=== PATIENT | female | born 1955 | race Caucasian/White ===

== ENCOUNTER → 2025-03-30 | Outpatient (CLI) | payer MEDICARE, MEDICAID, SELFPAY ==
--- NOTE | 2025-03-30 14:00 | XR_ITS ---
Examination: Bone densitometry Date and time of exam:March 30, 2025, 1405 hours INDICATIONS: Menopause age 54 Technique: Lumbar spine and hip total bone mineralization values of an calculated. Peak reference and age match control results have been displayed. Findings: Lumbar spine total bone mineralization is1.055 gm/cm2. This is 21 standard deviations above peak reference. This is 2.2 standard deviations above age-matched controls. Hip total bone mineralization is 0.954 gm/cm2 This is 0.1 standard deviations above peak reference. This is 1.6 standard deviations above age-matched controls Impression: There is normal mineralization based on lumbar spine measurements. There is normal mineralization based on hip measurements Lumbar mineralization is increased 1.8% compared with March 27, 2023 Hip mineralization is decreased 1.9% compared with March 27, 2023
== END | disposition home or self-care (01) ==
LOC: CDIM 13:39
PROVIDERS: PCP Physician Assistant; Referring Provider Physician Assistant; Visit Provider Physician Assistant
DX: M81.0 Age-related osteoporosis without current pathological fracture (principal)
CPT/HCPCS: 77080

== ENCOUNTER 2025-04-30 22:11 | Emergency (ER) | payer MEDICARE, MEDICAID, SELFPAY ==
--- NOTE | 2025-04-30 22:28 | PD.EDEXREM ---
ED Extremity Problem RME/HPI General Chief complaint: General Adult/Misc Complain Stated complaint: BILATERAL LEG CRAMPING AND SWELLING Time Seen by Provider: 04/30/25 22:32 Arrival date/time: 04/30/25 22:11 RME / HPI RME / HPI Narrative: See MDM for Dr. Hines's HPI documentation. Related Data Allergies Allergy/AdvReac Type Severity Reaction Status Date / Time No Known Allergies Allergy Verified 04/30/25 22:12 Review of Systems Review of Systems Systems Reviewed: All systems reviewed, normal except as documented Past Medical History Social History SMOKING STATUS: Never smoker Course Quality Measures none Orders Category Date Time Status Bedside COVID-19 Antigen Test NOW Care 04/30/25 22:35 Completed Bedside Influenza A&B Antigen Test NOW Care 04/30/25 22:35 Completed EKG (ED ONLY) *Do not use* NOW Care 04/30/25 22:36 Completed Saline [Insert IV] NOW Care 04/30/25 22:35 Completed Straight [In and Out Catheter] X1 Care 04/30/25 22:35 Completed EKG (ED Only) Stat Exams 04/30/25 22:36 Draft US venous doppler LE BI Stat Exams 05/01/25 00:00 Taken XR chest 1V portable Stat Exams 04/30/25 22:36 Completed BNP [B-Type Natriuretic Peptide] Stat Lab 04/30/25 23:05 Completed Beta Hydroxybutyrate Stat Lab 04/30/25 23:05 Completed Bilirubin,Direct Stat Lab 04/30/25 23:05 Completed CBC Stat Lab 04/30/25 23:05 Completed CK [Creatine Kinase] Stat Lab 04/30/25 23:05 Completed CMP [Comprehensive Metabolic Panel] Stat Lab 04/30/25 23:05 Completed CRP [C-Reactive Protein] Stat Lab 04/30/25 23:05 Completed D-Dimer Stat Lab 04/30/25 23:05 Completed ESR [Sed Rate (ESR)] Stat Lab 04/30/25 23:05 Completed Magnesium Stat Lab 04/30/25 23:05 Completed Procalcitonin Stat Lab 04/30/25 23:05 Completed TSH [Thyroid Stimulating Hormone] Stat Lab 04/30/25 23:05 Completed Troponin I Stat Lab 04/30/25 23:05 Completed UA, C/S IF [Urinalysis, C/S if Indicated] Stat Lab 05/01/25 00:10 Completed Urine Culture Stat Lab 05/01/25 00:10 Received Ketorolac Inj [Toradol Inj] Med 04/30/25 22:35 Discontinued 7.5 mg IVP X1 ONE Morphine* Inj Med 04/30/25 22:35 Discontinued 2 mg IV X1 ONE Ondansetron Inj [Zofran Inj] Med 04/30/25 22:35 Discontinued 4 mg IVP X1 ONE Sodium Chloride 0.9% 1000 ml [Ns] 1,000 ml Med 04/30/25 22:35 Discontinued IV 999 mls/hr Vital Signs Vital signs: Vital Signs Temperature 99.0 F 04/30/25 22:29 Pulse Rate 107 H 04/30/25 22:29 Respiratory Rate 16 04/30/25 22: Blood Pressure 151/85 H 04/30/25 22:29 Pulse Oximetry (%) 95 04/30/25 22:29 Oxygen Delivery Method Room Air 04/30/25 22:29 Extremity Problem MDM Narrative MDM Narrative:: This section includes all my notes and documentations, including HPI, PE, and ED course. Mario Hines MD HPI: 70yo female here for multiple complaints. Patient went to a baseball game at [facility] [employer] today and walked more than usual. She was in the heat and sun. She reports diffuse aches and pain, including in the legs. And malaise and fatigue. No headache or dizziness. No chest pain or shortness of breath. No abdominal pain. No other complaints. ROS: All negative except as documented in HPI. Physical Exam: General: Alert and oriented. Appears to be in pain. Eyes: Conjunctivae and lids clear. PERRL L. EOMI. ENT: No nasal congestion. Neck: Supple. Heart: RRR. Lungs: No respiratory distress. Good air movement. No rhonchi, wheezing, rales. Abdomen: Soft and nontender. Normal bowel sounds. No distention. No rebound or guarding. Legs: Mild edema noted. Skin: Warm and dry. Scattered areas of first-degree sunburn, varying in size and shape. Neuro: Alert and oriented X 3. I reviewed all diagnostic test results. My interpretation of the EKG is sinus tachycardia with nonspecific ST-T changes. My interpretation of the chest x-ray is NAD. My review of the BLE US report is no DVT. Blood tests and urine tests are unremarkable. COVID/Influenza negative. At this point, diagnoses include: Heat exhaustion Treatment here included: Toradol 7.5 mg IV Zofran 4 mg IV Morphine 2 mg IV IV fluid She felt much better. Recommended supportive care Based on my best medical judgment, made decision no further evaluation or treatment indicated at this time. Patient understands and agrees to the discharge instructions customized and printed, see below. Discharge Instructions from Dr. Hines printed for you: 1. After extensive evaluation, there is no life-threatening condition. Such as heart attack or blood clots. 2. Your symptoms are due to heat exhaustion, see attached handout. 3. Rest for 2 days then resume your normal activity. Prolonged inactivity is terrible for your body. 4. When resting or sitting or sleeping, elevate your feet/ankles above your waist level. 5. Apply ice or heat if helpful. Ibuprofen/Tylenol as needed. 6. Avoid prolonged exposure to sun and heat. 7. For good hydration, increase oral fluid and maintain clear urine. If dark or yellow, increase oral fluid. 8. Seek immediate medical care with worsening or with any concerns. Mario Hines MD Patient data External records reviewed:: [facility] previous records (Per chart review, patient has no previous ED visits or admissions to this facility.) Clinical information provided by:: patient Social determinants that could affect healthcare access:: none Patient has the following chronic illnesses:: none How is presenting disease/condition affected by chronic disease/condition?: no chronic disease Evaluation data The following diagnostics were reviewed and interpreted by me:: lab results, radiology exam(s) and EKG tracing(s) (My interpretation of the EKG is: Sinus tachycardia (105 bpm) with nonspecific ST-T changes. Mario Hines MD) Lab and/or radiology exams considered but not ordered:: none Interpretation Summary: I reviewed all diagnostic test results. My interpretation of the EKG is sinus tachycardia with nonspecific ST-T changes. My interpretation of the chest x-ray is NAD. My review of the BLE US report is no DVT. Blood tests and urine tests are unremarkable. COVID/Influenza negative. Medications / Prescriptions Medications or Prescriptions considered but not ordered:: none Medication administrations:: Medication Administration History Discontinued Medications Sodium Chloride (Ns) 1,000 mls @ 999 mls/hr IV .Q1H1M ONE Stop: 04/30/25 23:35 Last Infusion: 05/01/25 01:50 Dose: Infused Documented By: Admin: 04/30/25 23:11 Dose: 999 mls/hr Documented By: EE Ketorolac Tromethamine (Ketorolac Inj 30 Mg/Ml Vial) 7.5 mg IVP X1 ONE Stop: 04/30/25 22:36 Last Admin: 04/30/25 23:09 Dose: 7.5 mg Documented By: EE Morphine Sulfate (Morphine Sulf Inj 4 Mg/Ml Vial) 2 mg IV X1 ONE Stop: 04/30/25 22:36 Last Admin: 04/30/25 23:10 Dose: 2 mg Documented By: EE Ondansetron HCl (Ondansetron Inj 2 Mg/Ml Inj 2 Ml) 4 mg IVP X1 ONE; Protocol Stop: 04/30/25 22:36 Last Admin: 04/30/25 23:10 Dose: 4 mg Documented By: CJ Treatment here included: Toradol 7.5 mg IV Zofran 4 mg IV Morphine 2 mg IV IV fluid Consultations Consultation(s) initiated? (list below): No Diagnosis Extremity Problem Differential Diagnosis: cellulitis, deep vein thrombosis of lower extremity and other (Heat exhaustion, rhabdomyolysis, dehydration, electrolyte abnormalities) Most likely diagnosis given after review of the tests above:: Heat exhaustion Admission Indicated Admission indicated?: not indicated Explain why admission is indicated or not indicated:: With significant improvement and no condition needing emergent intervention, there was no indication for admission. Admission Request Was there a request for admission?: No Disposition Plan Disposition Plan: Discharge Discharge Attestation Discharge Attestation: The patient and all family members were given an opportunity to ask questions and understood the discharge instructions. Discharge instructions specifically effects, indications for sooner follow up or return to the emergency department, and the expected course of current diagnosis. Patient condition: Stable Discharge Plan Plan Patient Disposition: HOME (Self Care) Prescriptions/Referrals Referrals: Danielle Zeng PA-C [Primary Care Provider, Family Practice] - In 1 week Problem List Clinical Impression: Heat exhaustion Patient/Caregiver Discharge Instructions Discharge Activity: activity as tolerated Education Materials: ED Heat Exhaustion Additional Instructions: Discharge Instructions from Dr. Hines printed for you: 1. After extensive evaluation, there is no life-threatening condition. Such as heart attack or blood clots. 2. Your symptoms are due to heat exhaustion, see attached handout. 3. Rest for 2 days then resume your normal activity. Prolonged inactivity is terrible for your body. 4. When resting or sitting or sleeping, elevate your feet/ankles above your waist level. 5. Apply ice or heat if helpful. Ibuprofen/Tylenol as needed. 6. Avoid prolonged exposure to sun and heat. 7. For good hydration, increase oral fluid and maintain clear urine. If dark or yellow, increase oral fluid. 8. Seek immediate medical care with worsening or with any concerns. Print Language: Telugu Stand Alone Forms: [facility] Award Info., Patient Portal Info Letter
[2025-04-30 22:29] VITALS: BP 151/85; PULSE 107; RESP 16; TEMP 37.2; O2SAT 95
--- NOTE | 2025-04-30 22:36 | EKG_ITS ---
[facility] Test Date: 2025-04-30 Pat Name: ANOOP AUGUST Department: Room: - Gender: Female [employer]iano [employer]: : 1955 Requested By: Mario Harper Order Number: [id number] Reading MD: Mario Harper Measurements Intervals [place] Rate: 105 P: 63 SC: 129 QRS: 73 QRSD: 97 T: 42 QT: 328 QTc: 434 Interpretive Statements SINUS TACHYCARDIA ABNORMAL RHYTHM ECG No previous ECG available for comparison /[id number]/[email or web address]/[id number].pdf
--- NOTE | 2025-04-30 22:36 | XR_ITS ---
Examination: AP chest single view Technique: AP portable semiupright chest single view Date and time: April 30, 2025, 10:52 AM Indications: Shortness of breath today. Findings: Minor atelectasis in the lower lung zones Normal heart size No pneumonia or pulmonary edema The osseous structures are demineralized Impression: Minor atelectasis in the lower lung zones
[2025-04-30] MEDS: KETOROLAC INJ 30 MG/ML VIAL 7.5 MG IVP (23:09)
[2025-04-30] MEDS: ONDANSETRON INJ 2 MG/ML INJ 2 ML 4 MG IVP (23:10)
[2025-04-30] MEDS: MORPHINE SULF INJ 4 MG/ML VIAL 2 MG IV (23:10)
[2025-04-30] MEDS: SODIUM CHLORIDE 0.9% 1000 ML 1,000 ML 999 ML IV (23:11)
[2025-04-30 23:23] LABS: Basophils # (Auto) 0.0 Thou/mm3 (0.0-0.2); Basophils % (Auto) 0 % (0-2.5); Eosinophils # (Auto) 0.0 Thou/mm3 (0.0-0.5); Eosinophils % (Auto) 1 % (0-10); Hematocrit 40.2 % (36.0-46.0); Hemoglobin 13.3 g/dL (12.0-16.0); Immature Granulocytes Auto 0.02 Thou/mm3 (0.00-0.00); Lymphocytes # (Auto) 1.2 Thou/mm3 (1.0-4.8); Lymphocytes % (Auto) 16 % (10-50); Mean Corpuscular HGB Conc 33.1 g/dl (31.0-37.0); Mean Corpuscular Hemoglobin 31.2 pg (25.0-35.0); Mean Corpuscular Volume 94 fL (80-100); Monocytes # (Auto) 0.9 Thou/mm3 (0.0-0.8); Monocytes % (Auto) 12 % (0-12); Neutrophils # (Auto) 5.6 Thou/mm3 (1.8-7.7); Neutrophils % (Auto) 71 % (37-80); Nucleated Red Blood Cell # 0.00 Thou/mm3 (0.00-0.00); Nucleated Red Blood Cell % 0 /100 WBC (0); Platelet Count 162 Thou/mm3 (140-440); RDW Standard Deviation 45.0 fL (36.4-46.3); Red Blood Count 4.26 Miln/mm3 (4.00-5.20); White Blood Count 7.8 Thou/mm3 (3.6-11.0)
[2025-04-30 23:25] LABS: Beta Hydroxybutyrate 0.1 mmol/L (<0.6)
[2025-04-30 23:52] LABS: Sed Rate (ESR) 8 mm/hr (0-30)
[2025-04-30 23:53] LABS: Alanine Aminotransferase 15 U/L (10-49); Albumin, Serum 4.2 gm/dL (3.4-4.8); Albumin/Globulin Ratio 2.0 (1.2-2.2); Alkaline Phosphatase 72 U/L (46-116); Anion Gap 7 (7-16); Aspartate Amino Transferase 20 U/L (0-34); BUN/Creatinine Ratio 15 Ratio (12-20); Bilirubin,Direct < 0.1 mg/dL (0.0-0.3); Bilirubin,Total 0.3 mg/dL (0.3-1.2); Blood Urea Nitrogen 15 mg/dL (9-23); C-Reactive Protein < 0.5 mg/dL (0.0-0.9); Calcium 9.5 mg/dL (8.3-10.6); Calcium (Corrected) 9.5 mg/dL (8.5-10.1); Carbon Dioxide 27.3 mMol/L (20.0-31.0); Chloride 108 mMol/L (98-107); Creatine Kinase 122 U/L (34-171); Creatinine (Component) 1.0 mg/dL (0.6-1.3); Globulin 2.1 gm/dL (2.3-3.5); Glucose 126 mg/dL (74-106); Magnesium 1.8 mg/dL (1.6-2.6); Osmolality,Calculated 285 (275-295); Potassium 4.2 mMol/L (3.4-5.1); Procalcitonin 0.04 ng/ml (0.0-0.49); Sodium 142 mMol/L (136-145); Thyroid Stimulating Hormone 4.07 uIU/mL (0.55-4.78); Total Protein 6.3 gm/dL (5.7-8.2); Troponin I < 0.002 ng/mL (0.0-0.045); eGFR > 60 See Note
--- NOTE | 2025-05-01 | XR_ITS ---
Examination: Venous duplex lower extremity sonogram, bilateral. Date and time of exam: May 01, 2025 0033 hrs. Indications: Bilateral leg cramping beginning yesterday Technique: Multiple sonographic images of the deep venous system have been obtained. B-mode/2-D grayscale imaging of vascular structures and Doppler spectral analysis (waveforms) and color performed Both legs are examined. Findings: Deep venous systems do not demonstrate abnormal echogenicity. All visualized deep veins exhibit compressibility. All visualized deep veins exhibit augmentation. Impression: Negative for deep vein thrombosis
[2025-05-01 00:09] LABS: B-Type Natriuretic Peptide 29 pg/mL (0-100)
[2025-05-01 00:11] LABS: D-Dimer < 250 ng/mL (<600)
[2025-05-01 00:37] LABS: Collection Type, Urine Clean Catch
[2025-05-01 01:10] LABS: Bacteria,Urine Rare; Bilirubin,Urine Negative (Negative); Blood,Urine Negative (Negative); Clarity,Urine Clear (Clear/Hazy); Color,Urine Colorless (Lt Yel-Yel); Glucose, Urine Negative (Negative); Ketones,Urine Negative (Negative); Leukocyte Esterase,Urine Negative (Negative); Nitrite,Urine Positive (Negative); PH,Urine 7.5 (5.0-7.0); Protein,Urine Negative (Neg - Trace); RBC,Urine 2 /hpf (0-3); Specific Gravity,Urine 1.010 (1.001-1.035); Squamous Epithelial Cell,Urine < 1 /hpf (0-5); Urobilinogen,Urine Negative mg/dL (0.0-1.0); WBC,Urine 3 /hpf (0-5)
[2025-05-01 01:13] LABS: Culture Indicated,Urine Yes
--- NOTE | 2025-05-01 01:16 | PRELIM_ITS ---
Bilateral lower extremity venous Doppler ultrasound. May 01, 2025 at 0023 hours Clinical history: Edema, pain. Technique: Duplex scan of the bilateral lower extremity deep venous systems was performed utilizing 2D grayscale imaging, Doppler spectral analysis and color flow Doppler and with compression. Comparison: No prior study is available for comparison. Findings: Crouch scale, color flow and spectral Doppler evaluation of the lower extremity deep veins was performed. Right: The common femoral, superficial femoral and popliteal veins are patent and compressible. The great saphenous vein is patent and compressible at the level of the saphenofemoral junction. The posterior tibial and peroneal veins are patent and compressible. Normal respiratory variation and augmentation is noted. There is no evidence of occlusive or nonocclusive thrombus. Left: The common femoral, superficial femoral and popliteal veins are patent and compressible. The great saphenous vein is patent and compressible at the level of the saphenofemoral junction. The posterior tibial and peroneal veins are patent and compressible. Normal respiratory variation and augmentation is noted. There is no evidence of occlusive or nonocclusive thrombus. Impression: No sonographic evidence of deep venous thrombosis in both lower extremities. Report Electronically Signed By: Jacob Solis 05/01/2025 1:15:57 AM [EST]
[2025-05-01 01:58] VITALS: BP 145/67; PULSE 86; RESP 16; TEMP 36.6; O2SAT 99
== END 2025-05-01 02:00 | disposition home or self-care (01) ==
PROVIDERS: Emergency Provider Emergency Medicine; PCP Physician Assistant
DX: T67.5XXA Heat exhaustion, unspecified, initial encounter (principal); R06.02 Shortness of breath; R25.2 Cramp and spasm; R00.0 Tachycardia, unspecified; X58.XXXA Exposure to other specified factors, initial encounter
CPT/HCPCS: 51701; 36415; 71045; 80053; 81001; 82010; 82248; 82550; 83735; 83880; 84145; 84443; 84484; 85025; 85379; 85652; 86140; 87077; 87086; 87186; 87400; 87811; 93005; 93970; 96361; 96374; 96375; 99284; J1885; J2270; J2405; J7030

== ENCOUNTER → 2025-06-08 | Outpatient (CLI) | payer MEDICARE, MEDICAID, SELFPAY ==
--- NOTE | 2025-06-08 09:00 | XR_ITS ---
Examination: Screening digital mammography, bilateral Computer aided detection 3-D breast Tomosynthesis, bilateral Date and time of exam: June 08, 2025, 0851 hours, compared to mammograms dating to October 14, 2019 Indication: Screening Technique: Nonmagnified MLO, CC views of the breasts to been obtained, reconstructed from 3-D Tomosynthesis images. R2 computer aided detection program utilized for evaluation of suspicious masses and/or abnormal calcifications. 3-D Tomosynthesis images obtained. Findings: The breasts are heterogeneously dense, which may obscure small masses Bilateral skin lesions Numerous bilateral calcifications No interval suspicious masses Impression: BI-RADS category II: Benign Findings. Recommend 1 year follow-up mammogram.
== END | disposition home or self-care (01) ==
LOC: CDIM 08:42
PROVIDERS: Referring Provider Physician Assistant; Visit Provider Physician Assistant
DX: Z12.31 Encounter for screening mammogram for malignant neoplasm of breast (principal); R92.323 Mammographic fibroglandular density, bilateral breasts; R92.1 Mammographic calcification found on diagnostic imaging of breast
CPT/HCPCS: 77063; 77067